=== PATIENT | male | born 1950 | race Two or more races ===

== ENCOUNTER 2019-11-29 10:00 | Emergency (ER) | payer OTHER ==
[~2019-11-29] VITALS: Ht 177.8 cm; Wt 79.8 kg
[2019-11-29 10:10] VITALS: BP 146/86
== END 2019-11-29 11:21 | disposition home or self-care (01) ==
LOC: ER 10:00
DX: J45.909 Unspecified asthma, uncomplicated (principal); E11.9 Type 2 diabetes mellitus without complications; E78.5 Hyperlipidemia, unspecified; I10 Essential (primary) hypertension; Z76.0 Encounter for issue of repeat prescription